=== PATIENT | male | born 1970 | race Caucasian/White ===

== ENCOUNTER 2020-10-13 15:56 | Emergency (ER) | payer MEDICAID ==
[~2020-10-13] VITALS: Ht 182.9 cm; Wt 70.0 kg
[2020-10-13 16:17] VITALS: BP 109/78
[2020-10-13] MEDS ORDERED: DOXYCYCLINE 100MG CAPSULE PO STA (17:18)
[2020-10-13] MEDS ORDERED: mupirocin 2% cream 15gm TP STA (17:18)
[2020-10-13] MEDS ORDERED: MUPI22OI30 TOP (17:36)
[2020-10-13] MEDS ORDERED: DOXY100C2 PO (17:36)
[2020-10-13] MEDS ORDERED: mupirocin 2% ointment 22GM TP STA (17:39)
== END 2020-10-13 17:44 | disposition home or self-care (01) ==
LOC: ER 15:57
DX: B95.8 Unspecified staphylococcus as the cause of diseases classified elsewhere (principal)
CPT/HCPCS: 99283

== ENCOUNTER 2020-12-02 04:07 | Emergency (ER) | payer MEDICAID ==
[~2020-12-02] VITALS: Ht 182.9 cm; Wt 68.2 kg
[~2020-12-02 04:07] MED LIST: MUPI22OI30 TOP
[2020-12-02 04:13] VITALS: BP 134/85
== END 2020-12-02 05:47 | disposition left against medical advice (07) ==
LOC: ER 04:08
DX: Z48.00 Encounter for change or removal of nonsurgical wound dressing (principal); Z53.21 Procedure and treatment not carried out due to patient leaving prior to being seen by health care provider

== ENCOUNTER 2020-12-11 14:22 | Emergency (ER) | payer MEDICAID, OTHER ==
[~2020-12-11] VITALS: Ht 182.9 cm; Wt 66.6 kg
[2020-12-11 14:27] VITALS: BP 120/77
[2020-12-11] MEDS ORDERED: DOXYCYCLINE 100MG CAPSULE PO STA (15:52)
[2020-12-11] MEDS ORDERED: DOXY100C76 PO (15:58)
== END 2020-12-11 16:02 | disposition home or self-care (01) ==
LOC: ER 14:23
DX: B95.8 Unspecified staphylococcus as the cause of diseases classified elsewhere (principal); Z79.2 Long term (current) use of antibiotics; Z79.899 Other long term (current) drug therapy; Z86.19 Personal history of other infectious and parasitic diseases
CPT/HCPCS: 99283

== ENCOUNTER 2021-06-02 22:16 | Emergency (ER) | payer SELFPAY ==
[~2021-06-02] VITALS: Ht 182.9 cm; Wt 68.2 kg
[2021-06-02 22:27] VITALS: BP 156/93
--- NOTE | 2021-06-02 23:23 | NUR ---
Per abrasive worker, patient refused to allow labs to be drawn
== END 2021-06-03 00:41 | disposition left against medical advice (07) ==
LOC: ER 22:17
DX: R07.89 Other chest pain (principal); Z53.21 Procedure and treatment not carried out due to patient leaving prior to being seen by health care provider
CPT/HCPCS: 93005

== ENCOUNTER 2022-02-15 18:56 | Emergency (ER) | payer MEDICAID ==
[~2022-02-15] VITALS: Ht 182.9 cm; Wt 81.8 kg
[2022-02-15] MEDS ORDERED: normal saline 1000ml 1,000 ML IV ONE (19:10)
--- NOTE | 2022-02-15 19:10 | NUR ---
> received 51 yo M pt from EMS , for ETOH , recent METH use, and hx of marijuana, with L arm tenderness and currently numbness and heaviness , Lt side is sharper than the other ..
[2022-02-15 19:26] LABS: BASOPHILS # (AUTO) 0.1 X10'3 (0-0.2); BASOPHILS % (AUTO) 1.1 % (0-1); EOSINOPHILS # (AUTO) 0.1 X10'3 (0-0.9); EOSINOPHILS % (AUTO) 1.1 % (0-6); HEMATOCRIT 41.4 % (42.0-52.0); HEMOGLOBIN 13.9 g/dl (14.0-17.9); LYMPHOCYTES # (AUTO) 1.9 X10'3 (1.1-4.8); LYMPHOCYTES % (AUTO) 33.7 % (21-51); MEAN CORPUSCULAR HEMOGLOBIN 31.6 PG (27.0-31.0); MEAN CORPUSCULAR HGB CONC 33.7 g/dL (33.0-36.5); MEAN CORPUSCULAR VOLUME 93.7 FL (78-98); MEAN PLATELET VOLUME 7.4 FL (7.4-10.4); MONOCYTES # (AUTO) 0.4 X10'3 (0-0.9); MONOCYTES % (AUTO) 6.3 % (2-12); NEUTROPHILS # (AUTO) 3.3 X10'3 (1.8-7.7); NEUTROPHILS % (AUTO) 57.8 % (42-75); PLATELET COUNT 218 X10'3 (140-440); RED BLOOD COUNT 4.42 X10'6 (4.70-6.10); RED CELL DISTRIBUTION WIDTH 12.6 % (11.5-14.5); WHITE BLOOD COUNT 5.8 X10'3 (4.5-11.0)
[2022-02-15 19:35] LABS: ALANINE AMINOTRANSFERASE 16 U/L (12-78); ALBUMIN 3.3 G/DL (3.4-5.0); ALBUMIN/GLOBULIN RATIO 1.1 (1.1-1.5); ALKALINE PHOSPHATASE 74 IU/L (46-116); ANION GAP 6 (8-16); ASPARTATE AMINO TRANSFERASE 28 U/L (10-37); BILIRUBIN,TOTAL 0.4 MG/DL (0.1-1.0); BLOOD UREA NITROGEN 19 MG/DL (7-18); BUN/CREATININE RATIO 19.2 (5.4-32.0); CALCIUM 8.2 MG/DL (8.5-10.1); CHLORIDE 108 MMOL/L (99-107); CREATININE 0.99 MG/DL (0.60-1.10); GLUCOSE 112 MG/DL (70-104); POTASSIUM 3.4 MMOL/L (3.5-5.1); SODIUM 140 MMOL/L (135-145); TOTAL CARBON DIOXIDE 26.3 MMOL/L (24-32); TOTAL PROTEIN 6.4 G/DL (6.4-8.2); eGFR 80 ML/MIN
[2022-02-15 19:43] LABS: CREATINE KINASE 67 U/L (39-308); ETHANOL < 0.010 GM/DL (0.0-0.010); MAGNESIUM 1.8 MG/DL (1.5-2.4)
[2022-02-15 23:08] VITALS: BP 124/74
== END 2022-02-15 23:12 | disposition home or self-care (01) ==
LOC: ER 18:56
DX: F15.90 Other stimulant use, unspecified, uncomplicated (principal); T50.905A Adverse effect of unspecified drugs, medicaments and biological substances, initial encounter; F12.90 Cannabis use, unspecified, uncomplicated; Z72.89 Other problems related to lifestyle; Z79.899 Other long term (current) drug therapy
CPT/HCPCS: 36415; 71045; 80053; 80320; 82550; 83735; 83880; 84484; 85025; 85610; 93005; 96360; 99285; J7030